=== PATIENT | female | born 1965 | race Caucasian/White ===

== ENCOUNTER 2016-10-22 18:45 | Emergency (ER) | payer OTHER ==
[~2016-10-22] VITALS: Ht 156.2 cm; Wt 113.6 kg
[~2016-10-22 18:45] MED LIST: ACET-97 PO; AMIT10TA6 PO; AMOX500T2 PO; BACL20TA PO; CIPROFLOXACIN HCL PO; DULO60CA61 PO; ESTR1PAT13 TD; HYDR25TA4 PO; LISI-567 PO; METF500T4 PO; METO25TA6 PO; METR500T PO; ONDA4TAB6 PO; OXYC10TA8 PO; TIZA4TAB4 PO
[2016-10-22 18:47] VITALS: BP 127/82; PULSE 82; RESP 18; O2SAT 99
--- NOTE | 2016-10-22 18:55 | ED.REPORT ---
HPI-Headache Date of Service Oct 22, 2016 ED Provider: Alisha LockhartO. This is a very pleasant 51-year-old female who presents with a right temporal headache. Evidently she has had an upper respiratory tract infection and sinus discharge off and on for several weeks. She was placed on a course of antibiotics. She still seems to have a right temporal headache. Of note palpation of the right side of her skull seems to cause pain and she feels a fullness in this area. She has some mild neck pain and she twists her head side to side it seems to worsen the pain. She does not have any history of any cervical spine trauma. No risk factors for vertebral artery dissection. She never had a thunderclap headache. No family history of BUREAU DIRECTOR aneurysms. Guarding the headache: It was not maximal at onset. The headache was not thunderclap. There was no associated vomiting or syncope. There is been no associated neurologic complaints beyond pain. She did not have to take an ambulance into the hospital. She has not had a fever or stiff neck. Nursing Notes Stated Complaint: SINUS HEADACHE Chief Complaint: Headache Nursing Notes Reviewed: Yes Allergies: Coded Allergies: meloxicam (Verified Allergy, Severe, swelling, 05/12/14) pregabalin (Verified Allergy, Severe, swelling, 05/12/14) Cyclobenzaprine (Verified Allergy, Intermediate, swelling, 05/12/14) swelling of hands of feet, fluid retention TAPE (Verified Allergy, Unknown, BLISTERS, 05/12/14) Scheduled ([Ciprofloxacin Hcl]) 500 MG TABLET 500 MG PO BID Amitriptyline (Amitriptyline) 10 Mg Tablet 20 MG PO HS Amoxicillin (Amoxicillin) 500 Mg Tablet 500 MG PO QID started on 05/05/2014 Duloxetine (Duloxetine) 60 Mg Capsule. 60 MG PO DAILY Estradiol (Vivelle-Dot) 1 Each Patch.tdsw 1 EACH TD every 3 days Hydrochlorothiazide (Hydrochlorothiazide) 25 Mg Tablet 25 MG PO DAILY Lisinopril (Lisinopril) 20 Mg Tablet 20 MG PO DAILY Metformin (Metformin) 500 Mg Tablet 500 MG PO BIDWM Metoprolol Tartrate (Metoprolol Tartrate) 25 Mg Tablet 0.5 TAB PO BID Metronidazole (Flagyl) 500 Mg Tablet 500 MG PO Q6 Scheduled PRN Acetaminophen (Acetaminophen) 500 Mg Tablet 1-2 TAB PO Q4-6H PRN PRN For Pain Baclofen (Baclofen) 20 Mg Tablet 20 MG PO QID PRN PRN For Spasm Ondansetron (Zofran) 4 Mg Tablet 4 MG PO Q4 PRN PRN For Nausea Tizanidine (Tizanidine) 4 Mg Tablet 8 MG PO QID PRN PRN For Spasm oxyCODONE (oxyCODONE) 10 Mg Tablet 10 MG PO Q4-6H PRN PRN For Pain up to 5 times a day. General Time Seen by MD: 18:55 Chief Complaint Headache Hx Obtained From: Patient Arrived By: Walk-in Sudden in Onset?: Yes (Worsening three weeks ago) Onset Occurred: More than a week ago... (5 weeks) Symptom Duration: Since onset Location: : Parietal right Quality: Painful Severity: Current: Moderate Severity: Maximum: Moderate Associated with: Reports: Nasal congestion, Denies: Fever Exacerbated by: Neck movement Related History: Reports: Hypertension Recent Healthcare: Recent doctor visit Similar Sx Previous: No Risk-Headache )( SAH Risk Stratification No 1st degree relative, No Anticoagulation therapy, No Coagulopathy, No Janay- Danlos syndrome, No Hypertension, No Marfan's syndrome, No Polycystic kidney disease, No Prior SAH RF Statements: Risk factors reviewed )( IC Mass Risk Stratification RF Statements: Risk factors reviewed Past Medical History Past Medical History Notes: Past Medical History 1. Diabetes type 2. 2. Obstructive sleep apnea, on CPAP. 3. Polycystic ovarian syndrome. 4. 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 5. Hypertension. 6. Chronic pain with opiate habituation. 7. Depression. 8. Hx of Agitation and hallucinations due to toxic/metabolic encephalopathy and dehydration 9. Hx of Acute SBO likely due to adhesions from multiple prior abdominal surgeries and chronic opioid use 10. Sepsis 11. Hx of Acute kidney injury 12. Chronic back pain with chronic opioid use Past Surgical History 1. Multiple gynecological surgeries between ages of 12 and 18 and finally culminating to SAMANTHA and BSO in 1996. 2. Tonsillectomy. 3. Appendectomy. 4. Cholecystectomy, 2000. 5. x2. 6. Bilateral rotator cuff arthroscopic surgery x3. 7. Bilateral carpal tunnel release. 8. Seven right ankle surgeries. 9. Left meniscus knee surgery. Family History Father of heart disease. Mother is still alive, but has had a bypass in her early 60s. Smoking History Unknown if Ever Smoker Social History Other Social History: Good social support, Ambulatory Status Independent Review of Systems Constitutional: Denies: Fever Ears / Nose / Throat: Reports: Nasal congestion Musculoskeletal: Reports: Neck pain Neurologic: Reports: Headache Complete sys rev & neg: except as marked. Respiratory: Reports: Non-productive cough Allergy / Immune: Reports: Sneezing Physical Exam Initial Vital Signs Vital Signs (First) Date Time Temp Pulse Resp B/P Pulse Ox O2 Delivery O2 Flow Rate FiO2 10/22/16 18:47 36.5 82 18 127/82 99 10/22/16 22:15 Room Air Initial VS: Reviewed ENT: Mucous membranes moist, Conjunctiva normal, No scleral icterus Respiratory: Breath sounds normal, Clear to auscultation, No respiratory distress Cardiovascular: Regular rate & rhythm, Heart sounds normal Skin: Warm, Dry, No cyanosis Psychiatric: Mood/affect normal, Behavior normal, Normal thought content General/Constitutional: Awake, Alert Head / Eyes: Atraumatic (she does have tenderness with palpation over the right temporal muscles. Her right temporal artery however is not swollen or tender.), Normocephalic Head / Scalp Abnl: Positive: Scalp tender temporal R Neck: Supple, Full range of motion Neurologic: Oriented X3, Speech NL, No motor deficits, No sensory deficits Interpretation & Diagnostics Interpretation & Diagnostics: Influenza negative Lab Results Interpretation Result Diagram: 10/22/16192910/22/161929 Test 10/22/16 19:30 White Blood Count 13.1th/mm3 (3.8-10.1) Red Blood Count 4.44mil/mm3 (3.90-5.20) Hemoglobin 13.4g/dL (12.0-15.6) Hematocrit 40.4% (35.0-46.0) Mean Corpuscular Volume 91.0fL (81-100) Mean Corpuscular Hemoglobin 30.2pg (27.0-35.0) Mean Corpuscular Hemoglobin Concent 33.2% (32.0-37.0) Red Cell Distribution Width 12.3% (12.3-15.4) Platelet Count 349bil/L (150-400) Neutrophils (%) (Auto) 67.6% (40-74) Lymphocytes (%) (Auto) 24.5% (14-46) Monocytes (%) (Auto) 5.8% (4-12) Eosinophils (%) (Auto) 1.4% (0-5) Basophils (%) (Auto) 0.4% (0-3) D-Dimer < 0.5mg/L (<0.50) Sodium Level 138mEq/L (134-144) Potassium Level 3.6mEq/L (3.5-5.2) Chloride Level 96mEq/L (97-108) Carbon Dioxide Level 26mmol/L (18-29) Blood Urea Nitrogen 14mg/dL (6-24) Creatinine 0.94mg/dL (0.57-1.00) Estimat Glomerular Filtration Rate 90mL/min (>59) Glucose Level 165mg/dL (60-99) Calcium Level 9.9mg/dL (8.5-10.1) Total Bilirubin 0.3mg/dL (0.0-1.2) Aspartate Amino Transf (AST/SGOT) 27U/L (0-50) Alanine Aminotransferase (ALT/SGPT) 24U/L (0-32) Alkaline Phosphatase 100U/L (25-150) Total Protein 8.0g/dL (6.4-8.4) Albumin 4.4g/dL (3.4-5.0) Hold Ortega Top Tube Received (Received) CT Head Interpretation IMPRESSION: 1. No acute intracranial abnormality. Dictated by: Fernando Trimble M.D. on 10/22/2016 at 19:40 Study: Head CT no contrast Interpretation / Wet Read by: Interpret - Radiologist Re-Eval/Medical Decision Med Decision/Clinical Course Healthy 51 with headache status post sinusitis. She is very well in appearance. Her neck is completely supple without any signs of meningitis or nuchal rigidity or meningeal irritation. Meningitis very unlikely. The headache was not thunderclap. She has no risk factors for subarachnoid hemorrhage. Subarachnoid hemorrhage felt to be very unlikely. She does have a tender right temporal region. Not necessarily over the temporal artery over the muscles and bones of the right side of her head or tender. Highly unlikely that she has an osteomyelitis of her skull or mass however this needs to be considered. She does have a mild leukocytosis. Her d-dimer is negative so I doubt highly that she has dural venous thrombosis because I would expect this to range her d-dimer at least a little bit. CT scan of her brain did not show any acute abnormalities. She had a mild leukocytosis. Remainder of labs are normal. D-dimer is negative. She was medically treated. I think the Ativan helped more than anything so perhaps this is a tension type headache related to the temporalis muscle. Subarachnoid hemorrhage very unlikely as such spinal tap not indicated. Same holds true for meningitis. Do think that if she continues to have headache symptoms she should have an MRI with contrast or possibly CT with contrast. Otherwise she can be followed up on the outpatient basis. She is to return if she has any problems or any worsening symptoms. Routine opiate warnings were given. Ruptured diaz aneurysm considered unlikely based on history and physical examination and diagnostics. BUREAU DIRECTOR mass unlikely based on CT scan. Meningitis very unlikely based on history, physical examination and diagnostics. Source of Hx: Old records Re-Evaluation/Progress #1: Time of Eval: 20:15 )( Patient Status: Condition improved Re-Evaluation/Progress Note: Discussed with patient CT results. Re-Evaluation/Progress #2: Time of Eval: 22:05 )( Patient Status: Condition improved Re-Evaluation/Progress Note: Discussed with patient CT and lab results, diagnosis, and plan for discharge. Follow-up and return to the ER instructions given. Patient agrees with plan for care and all questions were addressed. Counseled Regarding: Diagnosis, Lab results, Need for follow-up, When/why to return to ED Discharge & Departure Impression: Primary Impression: Headache Headache type: unspecified Headache chronicity pattern: acute headache Intractability: not intractable Qualified Code: R51 - Headache Disposition: Home Discharge Condition All VS Reviewed: Yes Condition: Stable Patient Instructions: Acute Headache (ED) Additional Instructions: Thank you for entrusting us with your care. Your exam today was reassuring. Your head CT was normal and your influenza screen was negative. You probably have a viral illness. 1-2 [place] every six hours as needed for pain. Do not drink alcohol, drive, or consume acetaminophen while taking [place]. Call your primary care provider tomorrow for a follow-up appointment. You may need an MRI or MRA if symptoms persist. Return to the ER with any new or worsening symptoms. Referrals: Rasta Ruiz MD (PCP) Scribe Attestation Portions of this note were transcribed by Trupti Pham. I, Dr. Carey, personally performed the history, physical exam, and medical decision-making; I reviewed and confirmed the accuracy of the information in the transcribed note. Signed by: Unique Cross, 10/22/2016, 22:13 copies to: Rasta Ruiz MD, Todd P DO Oct 22, 2016 18:55 TRUPTI PHAM Oct 22, 2016 19:23
--- NOTE | 2016-10-22 19:42 | DRSVH ---
PROCEDURE: CT BRAIN WITHOUT CONTRAST ([id number]) INDICATIONS: right temporal headache, right neck pain TECHNIQUE: Noncontrast 4.5 mm thick angled axial sections acquired from the foramen magnum to the vertex, with c oronal reformats. COMPARISON: [facility], CT, BRAIN W/O CONTRAST, 02/12/2013, 20:20. FINDINGS: Image quality: Excellent. CSF spaces: Basal cisterns are patent. There is prominence of the bifrontal extra axial spaces rede monstrated. Ventricles are normal in size and shape. Brain: No intracranial hemorrhage, mass, or mass effect. Thibodeaux-white matter interface is preserved. Skull and face: Calvarium and visualized facial bones are intact, without suspicious lesions. Sinuses: Visualized sinuses and mastoids are clear. IMPRESSION: 1. No acute intracranial abnormality. Dictated by: Fernando Trimble M.D. on 10/22/2016 at 19:40 Approved by: Fernando Trimble M.D. on 10/22/2016 at 19:40
[2016-10-22 19:50] LABS: BASOPHILS % (AUTO) 0.4 % (0-3); EOSINOPHILS % (AUTO) 1.4 % (0-5); MONOCYTES % (AUTO) 5.8 % (4-12); Mean Corpuscular Hemoglobin 30.2 pg (27.0-35.0); NEUTROPHILS % (AUTO) 67.6 % (40-74); Platelet Count 349 bil/L (150-400)
[2016-10-22] MEDS ORDERED: HYDROcodone-APAP 5-325 mg Tablet PO ONE (20:20)
[2016-10-22] MEDS ORDERED: Dexamethasone 10 mg/mL Inj IVPUSH ONE (20:20)
[2016-10-22] MEDS ORDERED: _HYDROcodone/APAP 5-325 mg Tablet PO PRN (21:35)
[2016-10-22 22:15] VITALS: BP 118/80; PULSE 103; RESP 16; O2SAT 95
== END 2016-10-22 22:16 | disposition home or self-care (01) ==
LOC: SED 18:45
DX: R51 Headache (principal); I10 Essential (primary) hypertension; E11.9 Type 2 diabetes mellitus without complications; D72.819 Decreased white blood cell count, unspecified; F11.20 Opioid dependence, uncomplicated; Z88.8 Allergy status to other drugs, medicaments and biological substances; Z79.84 Long term (current) use of oral hypoglycemic drugs
CPT/HCPCS: 36415; 70450; 80053; 85025; 85379; 87804; 96374; 96375; 99285; J1100; J2060